=== PATIENT | female | born 1990 | race Caucasian/White ===

== ENCOUNTER 2019-10-21 21:45 | Emergency (ER) | payer BC ==
[~2019-10-21] VITALS: Ht 160 cm; Wt 65.8 kg
[2019-10-21 21:52] VITALS: BP 116/63
--- NOTE | 2019-10-21 21:59 | NUR ---
PT TAKEN TO BED 12
--- NOTE | 2019-10-21 22:00 | NUR ---
29 YO F BIB SELF FOR C/C OF 9/10 SHARP LEFT SHOULDER PAIN SINCE 3 AM. PAIN RADIATES FROM LEFT SHOULDER TO LEFT LOWER ARM. DENIES NUMBNESS AND TINGELING. RADIAL PULSES ARE EQUAL AND REGULAR. PT FELL ON SHOULDER AT 3 AM AND WENT TO URGENT CARE WHERE SHE HAD AN X RAY. PT WAS TOLD SHE HAS A SCAPULA FRACTURE AND WAS TOLD TO COME TO ER FOR CT SCAN. DENIES TRAVEL, SOB, FEVER, AND COUGH. BED LOCKED AND IN LOWEST POSITION. ALLERGIES TO SULFA DRUGS MED HX: LUPUS RX: PLAQUENIL
[2019-10-21] MEDS ORDERED: HYDROcodone/APAP 5/325 MG 1 TAB TAB PO ONE (22:05)
--- NOTE | 2019-10-21 22:16 | NUR ---
PT TAKEN TO CT VIA WHEELCHAIR.
--- NOTE | 2019-10-21 22:26 | NUR ---
PT RETURN FROM CT
--- NOTE | 2019-10-21 22:29 | NUR ---
VISUALIZED PTS SHOULDER POST CT SCAN. SHOULDER IS SWOLLEN BUT NO BRUSING VISULAIZED. PT HAS FACIAL GRIMMACING AND SAYS HER PAIN IS STILL 9/10.
--- NOTE | 2019-10-21 23:03 | NUR ---
pt states her pain has reduced from 9/10 to 7/10 1 hour post norco
[2019-10-22 00:18] VITALS: BP 116/63
--- NOTE | 2019-10-22 00:18 | NUR ---
Patient discharged with v/s stable. Written and verbal after care instructions given and explained. Patient alert, oriented and verbalized understanding of instructions. Ambulatory with steady gait. All questions addressed prior to discharge. ID band removed. Patient advised to follow up with PMD. Rx of norco, motrin given. Patient educated on indication of medication including possible reaction and side effects. Opportunity to ask questions provided and answered.
== END 2019-10-22 00:18 | disposition home or self-care (01) ==
LOC: MED 21:45
DX: M25.512 Pain in left shoulder (principal); Z88.2 Allergy status to sulfonamides; W18.39XA Other fall on same level, initial encounter; Y93.89 Activity, other specified; Y92.89 Other specified places as the place of occurrence of the external cause; Y99.8 Other external cause status
CPT/HCPCS: 73200; 99284